=== PATIENT | female | born 1940 | race Caucasian/White ===

== ENCOUNTER 2017-03-14 22:37 | Observation (INO) ==
--- NOTE | 2017-03-15 02:10 | Internal Med History&Physical ---
<Yvette Flannery - Last Filed: 03/15/17 03:15> Date of Encounter: 03/15/17 Time of Encounter: 01:00 Assessment and Plan (1) New onset atrial fibrillation Current visit: Yes Status: Acute - New onset of A-flutter/A-fib RVR per EKG at [facility] ED. - Self-converted back sinus rhythm while on Cardizem drip prior to arrival to [place]. - Unknown etiology at this time. Differentials include hypertensive heart disease (doubt given no history of HTN), coronary heart disease (doubt given negative troponin, no chest pain nor ischemic change on EKG), hyperthyroidism ( less likely given recent TSH 1.567 on 02/03/17). - Repeat troponin. - Will obtain echocardiogram for further evaluation. - Currently rated controlled around 70s. - Will titrate down Cardizem to eventually switch to Lopressor 12.5 mg PO BID. - [id number] score = 2 (age and gender). Will start Lovenox 1 mg/kg SQ q12H for anticoagulation now. - Will consult cardiology and appreciate further evaluation and recommendations. - Patient needs to be admitted for close monitor with telemetry and further evaluation and management including cardiology consult. (2) DVT prophylaxis Current visit: Yes Status: Acute - Patient is currently on Lovenox 1 mg/kg SQ q12H. Internal Medicine - H&P: HPI Chief complaint: Palpitation Admitted From: Emergency Dept ([facility]) Plans for Post Hospital Care: Home History of present illness: Ms. Diaz is a 76 year old female without significant known PMH. Patient was transferred from [facility] ED for new onset A-fib/A-flutter. Patient reports having new acute onset of palpitation starting about 5 pm on 03/14. It's intermittent but no modifying factors noted. It's associated with lightheadedness, nausea and strange feeling down her right arm and bilateral lower extremities. Patient attended her line dancing at around 7 pm but the frequency and intensity of palpitation continued to increase to the point she cannot dance more. Patient denies chest pain/discomfort, diaphoresis, syncope, shortness of breath from palpitation. Patient denies fever, chills, vision change, hearing change, numbness/tinging, focal weakness. Patient is full code. Patient's only medication is baby aspirin two pills at night time and denies use of any thyroid supplement. In [facility] ED, patient has unremarkable lab (WBC 8.7, Hgb 15.6, Plt 281, Na 141, K 3.4, Cl 101, HCO3 23, BUN 29, SCr 0.88, glu 138, Ca 9.7, Mg 2.2, AST 18, ALT 21, Alk phos 1.2, Alb 4.5, PT 12.0, INR 0.95, PTT 25.2, Troponin < 0.056. EKG showed A-flutter/A-fib with rate as high as 220. Lopressor 5 mg IV x 1 was initially given but later started on Cardizem, which ran at 10 mg/hr upon arrival to [facility]. Past Med Surg Social Fam HX - Past Medical History Medical history: other (Osteopenia) Psychiatric history: no psych history - Past Surgical History Surgical History: cataract, hysterectomy - Social History Smoking Status: Never smoker Smokeless Tobacco Status: No Alcohol use: none Drug use: none - Family History Father Living Status: Age at : 74 Cause of : [place] Hx Family Cardiac Disorders: Yes ([place]) Mother Living Status: Age at : 93 Internal Medicine - H&P: Meds Aspirin 162 mg PO HS 02/24/17 [History] Calcium Carbonate/Vitamin D3 [Calcium 500 + Vit D Caplet] 1 tab PO DAILY [History] Lutein [Lutein] 6 mg PO DAILY 02/24/17 [History] Mv-Mn/FA/Vit K/Lycop/Lut/Coq10 [Daily Multivitamin Capsule] 1 tab PO DAILY 02/24 [History] [place]-3/Dha/Epa/Fish Oil [Fish Oil 1,000 mg Softgel] 1 tab PO DAILY 02/24/17 [ History] Allergies No Known Allergies Allergy (Verified 02/24/17 10:29) All Systems PM: A 10-system review of systems was performed and is negative for pertinent findings except as documented above in the HPI. - Constitutional Constitutional: no anorexia, no chills, no fever(s), no weight gain, no weight loss - EENT Eyes: no change in vision Ears: no decreased hearing Nose, mouth and throat: no dysphagia, no odynophagia - Cardiovascular Cardiovascular ROS IM: as per HPI, lightheadedness, palpitations, no chest pain , no diaphoresis, no edema, no syncope - Respiratory Respiratory: no cough, no dyspnea, no hemoptysis - Gastrointestinal Gastrointestinal: nausea, no abdominal pain, no diarrhea, no hematochezia, no melena, no vomiting - Genitourinary Genitourinary: no difficulty urinating, no dysuria, no hematuria - Musculoskeletal Musculoskeletal ROS IM: no arthralgias, no myalgias - Integumentary Integumentary IM: no pruritus, no rash - Neurological Neurological ROS: no focal weakness, no numbness, no tingling - Hematologic/Lymphatic Hematologic/Lymphatic: no easy bleeding, no easy bruising - Constitutional Vitals: Temp Pulse Resp BP Pulse Ox 97.6 F 62 18 117/65 97 03/15/17 00:12 03/15/17 00:49 03/15/17 00:12 03/15/17 00:49 03/15/17 00:12 General appearance: Present: cooperative, A&O X 3, no acute distress, answers questions appropriately - Head Head exam: Present: atraumatic, normocephalic - Eye Eye exam: Present: EOMI, PERRL, conjuntiva pink, sclera anicteric - Neck Neck exam general surgery: Present: supple, trachea midline. Absent: lymphadenopathy - Respiratory Respiratory exam: Present: CTAB. Absent: accessory muscle use, rales, rhonchi, wheezes - Cardiovascular Cardiovascular exam: Present: RRR, +S1, +S2. Absent: diastolic murmur, gallop, rubs, systolic murmur - GI/Abdominal GI/Abdominal exam: Present: normal bowel sounds, soft, no peritoneal signs. Absent: distended, tenderness - Extremities Exam Extremities exam: Present: warm, radial pulses palpable and symetrical. Absent : calf tenderness, cyanotic, pedal edema - Neurological Exam Neurological exam: Present: CN II-XII intact, oriented X3, no focal deficits. Absent: pronater drift, facial droop, speech deficit - Skin Skin exam: Present: dry, intact, warm Internal Med - H&P Results - Labs CBC & Chem 7: 03/15/17 02:10 03/15/17 02:10 Labs: Short CBC 03/15/17 Range/Units 02:10 WBC 6.9 (4.3-11.1) K/mcL Hgb 14.0 (11.5-15.4) g/dL Hct 40.9 (35.3-44.9) % Plt Count 255 (140-400) K/mcL Neutrophils # 5.0 (1.6-8.9) K/mcL Cardiac Enzymes 03/15/17 Range/Units 02:10 Troponin I 0.03 (0-0.03) ng/mL - EKG Data -: EKG Interpreted by Myself Rate: normal - EKG Data Prior EKG available for review: yes When compared to previous EKG: there are significant changes EKG comments: 03/15/17 02:15 HR 69, MA 161, QRS 75, ectopic atrial rhythm. No significant ischemic change. <Cayetano Jones - Last Filed: 03/15/17 05:13> Date of Encounter: 03/15/17 Internal Medicine - H&P: HPI History of present illness: Ms. Diaz is a 76 year old female All Systems PM: A 10-system review of systems was performed and is negative for pertinent findings except as documented above in the HPI. - Constitutional Vitals: Temp Pulse Resp BP Pulse Ox 97.6 F 63 18 122/61 97 03/15/17 00:12 03/15/17 02:56 03/15/17 00:12 03/15/17 02:56 03/15/17 00:12 Internal Med - H&P Results - Labs CBC & Chem 7: 03/15/17 02:10 03/15/17 02:10 Labs: Short CBC 03/15/17 Range/Units 02:10 WBC 6.9 (4.3-11.1) K/mcL Hgb 14.0 (11.5-15.4) g/dL Hct 40.9 (35.3-44.9) % Plt Count 255 (140-400) K/mcL Neutrophils # 5.0 (1.6-8.9) K/mcL BMP 03/15/17 02:10 Sodium 143 Potassium 3.7 Chloride 112 H Carbon Dioxide 21 BUN 24 H Creatinine 0.72 Glucose 125 H Calcium 9.4 Cardiac Enzymes 03/15/17 Range/Units 02:10 Troponin I 0.03 (0-0.03) ng/mL - Attending Attestation I performed history and physical examination of the patient and discussed management with the Resident. I reviewed the Residents note and agree with documented findings and plan of care. 76 Y/F with no significant past medical problems presents with palpitations. Pt was seen in the ER at [facility], and was noted to have atrial fibrillation with RVR, HR in the 150s. she was given metoprolol and later started on diltiazem infusion, with improving heart rate. O/E: Not in acute distress. Cardiac regular rate and rhythm. No murmurs. Lungs clear to auscultation. EKG from [facility] personally reviewed and shows Atrial flutter / fibrillation with RVR. EKG repeated here shows ?ectopic atrial rhythm versus junctional rhythm. Recent TSH was reportedly normal. A/P: A flutter / fib with RVR: Continue with diltiazem infusion and transition to oral metoprolol or diltiazem. CHADS2-VASc sore of 2 (Echocardiogram is requested to evaluate LV function). Will start enoxaparin and consider oral anticoagulation. Cardiology consultation.
[2017-03-15 02:38] LABS: Basophils % 0.3 %; Eosinophils % 0.4 %; Hematocrit 40.9 % (35.3-44.9); Immature Granulocytes % 0.1 % (0-4); Lymphocytes # 1.2 K/mcL (0.6-4.6); Lymphocytes % 17.5 %; Mean Corpuscular HGB Conc 34.2 g/dL (31.6-35.5); Mean Corpuscular Hemoglobin 29.4 pg (28.0-33.3); Mean Corpuscular Volume 85.9 fL (83.0-100.0); Mean Platelet Volume 10.8 fL (9.4-12.4); Monocytes # 0.6 K/mcL (0.0-1.3); Monocytes % 8.7 %; Platelet Count 255 K/mcL (140-400); Red Blood Count 4.76 M/mcL (3.82-4.97); Red Cell Distribution Width 12.2 % (11.5-14.5)
[2017-03-15 02:49] LABS: BUN/Creatinine Ratio 33 (6-26); Blood Urea Nitrogen 24 mg/dL (7-20); Calcium 9.4 mg/dL (8.6-10.8); Carbon Dioxide 21 mEq/L (19-29); Chloride 112 mEq/L (98-109); Glucose 125 mg/dL (70-99); Osmolality,Calculated 302 (280-300); Potassium 3.7 mEq/L (3.5-4.5); Sodium 143 mEq/L (136-145); eGFR For African Americans > 60 (> 60); eGFR For Non-African Americans > 60 (> 60)
[2017-03-15] MEDS: *HR* Enoxaparin 60 MG/0.6 ML SYRINGE SQ SCH ×2 (02:54→05:46)
--- NOTE | 2017-03-15 09:38 | Cardiology Consult Note ---
<Jorden Rg A - Last Filed: 03/15/17 12:20> Date of Encounter: 03/15/17 Time of Encounter: 09:33 Assessment and Plan (1) Atrial tachycardia determined by electrocardiography Current Visit: Yes Status: Acute Initial EKG demonstrates SVT Follow up EKG shows atrial tachycardia with variable conduction Telemetry overnight reviewed which shows runs of atrial tachycardia and pauses No anticoagulation will be needed Patient is current asymptomatic with a normal HR Agree with metoprolol 12.5mg BID. No current need for pacemaker Recommend when d/c home to have a Holter monitor placed for outpatient follow up Recommend to be on 81mg of asa daily at home If echo results do not show significant abnormalities, cardiology will be signing off. Please call with any questions. Discussion w patient/family: The assessment and plan as outlined above was discussed with the patient and/or family members who expressed understanding and agreement. All questions were answered. Thank you for involving us in the care of your patient. Please call with any questions. History of Present Illness Consult date: 03/15/17 Consult reason: New onset Afib RVR Chief complaint: palpitations and pre-syncope History of present illness: Ms. Diaz is a 76 year old female who presented to [facility] ER due to palpitations and pre-syncope. She reports at 5pm on 03/14 she was sitting on the couch and developed palpitations, nausea, and pre-syncope. She went to her line dancing at 7pm but was unable to continue due to her symptoms and went to the ER. Was found to be in Afib RVR and started on cardizem drip and transferred to [place]. She converted to NSR before arrival to [place]. She has been remarkably healthy and only takes a baby aspirin and vitamins. No cardiac history. She denies having any syncope, no previously feeling the palpitations, so chest pain, no dyspnea. No prior heart cath. Past Med Surg Social Fam HX - Past Medical History Medical history: other (Osteopenia) Psychiatric history: no psych history - Past Surgical History Surgical History: cataract, hysterectomy - Social History Smoking Status: Never smoker Smokeless Tobacco Status: No Alcohol use: none Drug use: none - Family History Father Living Status: Age at : 74 Cause of : [place] Hx Family Cardiac Disorders: Yes ([place]) Mother Living Status: Age at : 93 Medications and Allergies Aspirin 162 mg PO HS 02/24/17 [History] Calcium Carbonate/Vitamin D3 [Calcium 500 + Vit D Caplet] 1 tab PO DAILY [History] Lutein [Lutein] 6 mg PO DAILY 02/24/17 [History] Mv-Mn/FA/Vit K/Lycop/Lut/Coq10 [Daily Multivitamin Capsule] 1 tab PO DAILY 02/24 [History] [place]-3/Dha/Epa/Fish Oil [Fish Oil 1,000 mg Softgel] 1,000 mg PO DAILY 02/24/17 [History] Allergies No Known Allergies Allergy (Verified 02/24/17 10:29) All Systems Review: A 10-system review of systems was performed and is negative for pertinent findings except as documented above in the HPI. - Constitutional Constitutional: fatigue (now resolved) - EENT Eyes: no loss of vision - Cardiovascular Cardiovascular: irregular heart rhythm, lightheadedness, palpitations, rapid heart rate, no dyspnea at rest, no syncope - Respiratory Respiratory: no cough, no dyspnea - Gastrointestinal Gastrointestinal: no abdominal pain - Integumentary Integumentary: no rash Physical Examination Vital Signs, Last 4 Hours Temp Pulse Resp BP Pulse Ox 03/15/17 07:27 98.3 F 67 15 114/59 99 General: Conversant HEENT: Atraumatic Neck: No JVD Cardiac: Reg Rate and Rhythm, Normal S1 and S2 Lungs: Normal Breath Sounds Neuro: Alert and responsive Abdomen: Soft Skin: No rashes noted on visualized skin Extremities: No Cyanosis, No Edema, Normal Pulses Results 03/15/17 02:10 03/15/17 02:10 Lab Results 03/15/17 03/15/17 03/15/17 02:10 02:10 02:10 WBC 6.9 Hgb 14.0 Hct 40.9 Plt Count 255 Sodium 143 Potassium 3.7 Chloride 112 H Carbon Dioxide 21 BUN 24 H Creatinine 0.72 Glucose 125 H Calcium 9.4 Troponin I 0.03 Consult Discharge Plan - Plan Referrals: Munira Sheppard DO [Primary Care Provider] - 03/24/17 1:30 pm <Magdalene Benjamin - Last Filed: 03/15/17 16:45> Date of Encounter: 03/15/17 Assessment and Plan Discussion w patient/family: The assessment and plan as outlined above was discussed with the patient and/or family members who expressed understanding and agreement. All questions were answered. Thank you for involving us in the care of your patient. Please call with any questions. History of Present Illness History of present illness: Ms. Diaz is a 76 year old female All Systems Review: A 10-system review of systems was performed and is negative for pertinent findings except as documented above in the HPI. Physical Examination Vital Signs, Last 4 Hours Temp Pulse Resp BP Pulse Ox 03/15/17 15:49 98.4 F 70 15 108/65 96 Results 03/15/17 02:10 03/15/17 02:10 Lab Results 03/15/17 03/15/17 03/15/17 02:10 02:10 02:10 WBC 6.9 Hgb 14.0 Hct 40.9 Plt Count 255 Sodium 143 Potassium 3.7 Chloride 112 H Carbon Dioxide 21 BUN 24 H Creatinine 0.72 Glucose 125 H Calcium 9.4 Troponin I 0.03 - Attending Attestation I examined this patient and my medical decision-making was reviewed with the TILE PRESSER/PA/Advanced Practice Nurse/Resident Physician. I agree with the documented findings, disposition and treatment plan. Ms. Diaz presented to [facility] ER with palpitations while country line dancing. She is generally very active and denies recent chest pain, SOB, pre syncope or syncope. She was transferred to [place]. I reviewed all her ECGs from [facility] and [place] in detail. There is no evidence for atrial fibrillation. She does however, have an ectopic atrial rhythm on her ECG here and atrial tachycardia with variable conduction on an ECG at [facility]. Certainly, she is at risk for the development of AF. I have recommended to the patient she start low dose aspirin for prevention purposes. I agree with metoprolol at present dose. Otherwise, her ECG findings demonstrate the development of conduction system disease which we discussed. Her echo was not available for our discussion at the time of my visit with the patient. However, I did review the results after seeing her. It demonstrates unremarkable findings. I would recommend sending the patient home on a 24 or 48 hour holter monitor for evaluation of dysrhythmia in her own home environment and while on metoprolol. I do not think she warrants ischemic evaluation at this time since she is very active and without ischemic symptoms. She should follow up with us as an outpatient. We will sign off. Please call with questions.
--- NOTE | 2017-03-15 12:12 | ECHO - Doppler Report ---
Echocardiogram Name: Armida Diaz Date of Study: 03/15/2017 Date: 1940 Ht: 61.0 in Medical Record#: [id number] Age: 76 Wt: 119.0 lb Gender: Female BSA: 1.52 Order #: [id number] Location: [facility] Room #: 2NE21 Reading Physician: Arya Chamberlain DO, OCTAVIA COHEN Acidizer: uHgo Palencia RDCS Ordering Physician: Yvette Flannery DO Primary Physician: Munira Sheppard DO Indications: Atrial fibrillation Impressions: LVEF 60-65%. Normal LV chamber size, wall thickness and function. Mild left ventricular diastolic dysfunction. Normal right ventricular structure and function. No evidence of pulmonary hypertension. No significant valvular dysfunction. Left Ventricular Wall Motion: Rest Echo Findings All wall segments showed normal motion. Findings: Study Quality * Technically adequate exam. ECG Findings * Normal sinus rhythm. Left Ventricle * LVEF 60-65%. * Normal LV chamber size, wall thickness and function. * Mild left ventricular diastolic dysfunction. Right Ventricle * Normal right ventricular structure and function. Left Atrium * Normal left atrial size. Right Atrium * Normal right atrial size. Interatrial Septum * No evidence of PFO by color Doppler. Aortic Valve * Trileaflet aortic valve. * Mildly calcified aortic valve leaflets. * No aortic regurgitation. * No aortic stenosis. Mitral Valve * Mild mitral annular calcification * Normal mitral valve function. * No mitral regurgitation. * No mitral stenosis. Tricuspid Valve * Normal tricuspid valve structure and function. * Trace tricuspid regurgitation. * No evidence of pulmonary hypertension. Pulmonic Valve * Normal pulmonic valve structure and function. * No pulmonic regurgitation. Aorta * Normally sized aortic root. Pericardium * The pericardium appears normal. IVC * Normal IVC dimensions and inspiratory collapse. Pulmonary Artery * Normal visualized portions of the main pulmonary artery. History Family History of CAD Measurements: BP: 114/ 59 2D Normal Values RVIDd: 2.18 cm <2.7 cm IVSd: .86 cm 0.6 - 1.0 cm LVIDd: 3.38 cm 3.7 - 5.6 cm LVPWd: .76 cm 0.6 - 1.1 cm LVIDs: 2.71 cm 1.5 - 3.6 cm AO: 2.20 cm < 4.0 cm LA: 2.50 cm 2.0 - 4.0cm %FS: 19.80 cm >25 % LA volume: 25 Mitral Valve Peak E:.90 m/sec Peak A:.83 m/sec E/A Ratio:1.1 Peak E' Lat Jaison:10.7 cm/s Peak E' Med Jaison:8.05 cm/s E/E' Lat Ratio:8.4 E/E' Med Ratio:11.1 Tricuspid Valve TV Regurg Peak Grad: 24.00mmHg TV Regurg Peak Jaison: 2.46m/sec Updated by Arya Chamberlain DO, FACKye, OCTAVIA, ERWIN on 03/15/2017 12:08:28 PM electronically signed on 03/15/2017 12:08:55 PM with status of Final Wall Motion Adams: 1=Normal, 2=Hypokinesis, 3=Akinesis, 4=Dyskinesis, 5=Aneurysmal, 6=Hyperkinetic, X=Not Visualized (Blank)=Missing
--- NOTE | 2017-03-15 14:51 | Electrocardiograph Report ---
[place] [address] Test Date: 2017-03-15 Pat Name: Armida Diaz Department: 111 Room: 2NE21 Gender: F Research Chemical Engineer: REDD : 1940 Requested By: Yvette Flannery Order Number: [id number] Reading MD: Michael Mercado MD Measurements Intervals [place] Rate: 69 P: -88 RI: 161 QRS: 50 QRSD: 75 T: 50 QT: 412 QTc: 430 Interpretive Statements ECTOPIC ATRIAL RHYTHM Electronically Signed On 03-15-2017 14:49:57 EDT by Michael Mercado MD
--- NOTE | 2017-03-15 16:38 | Internal Med Progress Note ---
<Andres Sorto - Last Filed: 03/15/17 16:49> Date of Encounter: 03/15/17 - Constitutional Vitals: Temp Pulse Resp BP Pulse Ox 98.4 F 70 15 108/65 96 03/15/17 15:49 03/15/17 15:49 03/15/17 15:49 03/15/17 15:49 03/15/17 15:49 Internal Medicine: Result - Labs CBC & Chem 7: 03/15/17 02:10 03/15/17 02:10 Labs: Short CBC 03/15/17 Range/Units 02:10 WBC 6.9 (4.3-11.1) K/mcL Hgb 14.0 (11.5-15.4) g/dL Hct 40.9 (35.3-44.9) % Plt Count 255 (140-400) K/mcL Neutrophils # 5.0 (1.6-8.9) K/mcL BMP 03/15/17 02:10 Sodium 143 Potassium 3.7 Chloride 112 H Carbon Dioxide 21 BUN 24 H Creatinine 0.72 Glucose 125 H Calcium 9.4 Cardiac Enzymes 03/15/17 Range/Units 02:10 Troponin I 0.03 (0-0.03) ng/mL Consult Discharge Plan - Plan Referrals: Munira Sheppard, [Primary Care Provider] - 03/24/17 1:30 pm - Attending Attestation I examined this patient and my medical decision-making was reviewed with the COCOA BEAN CLEANER/PA/Advanced Practice Nurse/Resident Physician. I agree with the documented findings, disposition and treatment plan as described except to the extent set forth below. Upon admission she has a supraventricular tachycardia. Cardiology on the board. We will follow cardiology recommendations. This is not a progress note. This is not a billable note. <Kathleen Holley - Last Filed: 03/15/17 17:45> Date of Encounter: 03/15/17 Time of Encounter: 09:30 - Assessment and plan (1) Atrial tachycardia determined by electrocardiography Current Visit: Yes Status: Acute Assessment and plan: patient was transferred from [facility], had chief complain of palpitations. cardiology has evaluated the patient. initial EKG showed SVT, repeat EKG showed atrial tachycardia with variable conduction. per cardio, tele shows runs of atrial tachycardia with pauses. no anticoagulation needed. patient asymptomatic and currently chest pain free. echo showed LVEF 60-65%, normal LV chamer, size, wall thickness, and function. normal RV structure and function, no evidence of pulmonary HTn, no significant valvular dysfunction. Plan: continue metoprolol 12.5 BID will monitor tele overnight. cardiology has recommended to D/c home with holter monitor and outpatient follow up. (2) DVT prophylaxis Current Visit: Yes Status: Acute Assessment and plan: lovenox. - Subjective Interval history: 76 year old female evaluated at bedside. patient was admitted last night for Afib RVR. she was a transfer from [facility] ED. she was started on cardizem drip and converted to sinus rhythm. she is now on metoprolol BID. patient denies nausea, vomiting, diarrhea, fever, chills. she states she is very active and started noticing palpitations last night that spontaneously went away. she then noticed it again when she went to her exercise class. at that time, she was diaphoretic and then was brought to the hospital. patient says she drinks only decaffeinated coffee. she denies drinking soda, or having excess caffeine. she has had some more emotional stress recently when she found out a "secret" about her ancestry. other than that, she has not noticed any sort of new stress in her life. she denies history of drug use. she is currently chest pain free. she denies dizziness, palpitations currently. - Constitutional Vitals: Temp Pulse Resp BP Pulse Ox 98.4 F 70 15 108/65 96 03/15/17 15:49 03/15/17 15:49 03/15/17 15:49 03/15/17 15:49 03/15/17 15:49 General appearance: Present: cooperative, A&O X 3, no acute distress, answers questions appropriately - Head Head exam: Present: atraumatic, normocephalic - Neck Neck exam general surgery: Present: supple, trachea midline - Respiratory Respiratory exam: Present: CTAB - Cardiovascular Cardiovascular exam: Present: RRR, +S1, +S2 - GI/Abdominal GI/Abdominal exam: Present: normal bowel sounds, soft. Absent: distended, tenderness - Extremities Exam Extremities exam: Absent: cyanotic, pedal edema - Neurological Exam Neurological exam: Present: alert, oriented X3, no focal deficits - Psychiatric Psychiatric exam: Present: normal affect, normal mood - Skin Skin exam: Present: dry Internal Medicine: Result - Labs CBC & Chem 7: 03/15/17 02:10 03/15/17 02:10 Labs: Short CBC 03/15/17 Range/Units 02:10 WBC 6.9 (4.3-11.1) K/mcL Hgb 14.0 (11.5-15.4) g/dL Hct 40.9 (35.3-44.9) % Plt Count 255 (140-400) K/mcL Neutrophils # 5.0 (1.6-8.9) K/mcL BMP 03/15/17 02:10 Sodium 143 Potassium 3.7 Chloride 112 H Carbon Dioxide 21 BUN 24 H Creatinine 0.72 Glucose 125 H Calcium 9.4 Cardiac Enzymes 03/15/17 Range/Units 02:10 Troponin I 0.03 (0-0.03) ng/mL
[2017-03-16] MEDS ORDERED: *HR* Enoxaparin 40 MG/0.4 ML SYRINGE SQ SCH (06:00)
[2017-03-16 07:46] LABS: BUN/Creatinine Ratio 23 (6-26); Blood Urea Nitrogen 16 mg/dL (7-20); Calcium 9.1 mg/dL (8.6-10.8); Carbon Dioxide 22 mEq/L (19-29); Chloride 109 mEq/L (98-109); Glucose 111 mg/dL (70-99); Osmolality,Calculated 294 (280-300); Potassium 3.9 mEq/L (3.5-4.5); Sodium 141 mEq/L (136-145); eGFR For African Americans > 60 (> 60); eGFR For Non-African Americans > 60 (> 60)
[2017-03-16 07:59] VITALS: BP 126/86
[2017-03-16] MEDS ORDERED: Aspirin 81 MG TAB.CHEW PO SCH (09:30)
--- NOTE | 2017-03-16 09:35 | Discharge Summary ---
<Kathleen Holley - Last Filed: 03/16/17 09:32> Date of Encounter: 03/16/17 Time of Encounter: 06:30 - Discharge Diagnosis (1) Atrial tachycardia determined by electrocardiography Priority: Primary Status: Acute (2) DVT prophylaxis Priority: Secondary Status: Acute - Discharge Medications Prescriptions: Metoprolol [Lopressor] 12.5 mg PO BID #60 tablet Home Medications: Aspirin 162 mg PO HS 02/24/17 [History] Calcium Carbonate/Vitamin D3 [Calcium 500 + Vit D Caplet] 1 tab PO DAILY [History] Lutein 6 mg PO DAILY 02/24/17 [History] Mv-Mn/FA/Vit K/Lycop/Lut/Coq10 [Daily Multivitamin Capsule] 1 tab PO DAILY 02/24 [History] [place]-3/Dha/Epa/Fish Oil [Fish Oil 1,000 mg Softgel] 1,000 mg PO DAILY 02/24/17 [History] Metoprolol [Lopressor] 12.5 mg PO BID #60 tablet 03/16/17 [Rx] Allergies/Adverse Reactions: Allergies No Known Allergies Allergy (Verified 02/24/17 10:29) Procedures/tests Complete & Pending: Procedures Performed prior 72 hours Category Date Time Status ECG 48 holter monitor setup [ECG] Routine Y 03/16/17 09:16 Ordered EKG [ECG 12 lead ECG] [ECG] Stat Y 03/15/17 02:11 Completed EV echocardiogram Routine Y 03/15/17 02:05 Completed SP exercise nuclear stress Routine Y 03/16/17 08:15 Ordered Date of admission: 03/14/17 23:46 Primary care physician: Jb Marquez Consults: 03/15/17 02:14 Consult to Cardiology [CONS] Routine Comment: Consulting Provider: Cardiology Sarah Reason for Consult: New onset of A-fib/flutter. Now back to sinus rhythm after Cardizem drip started at [facility]. Will switch to Lopressor 12.5 mg BID. [id number]- VASC score 2 (age & gender) and will start Lovenox 1 mg/kg SQ for anticoagulation now. Appreciate cardiology evaluation and recommendations. Call Completed: No Discharging clinician: Kathleen Holley Anticipated date of discharge: 03/16/17 - Patient Status Disposition: Home, Self-Care Condition: Good Functional capacity at discharge: independent ambulation Overall status at discharge: patient is progressing back to baseline - Discharge Instructions Instructions: Atrial Fibrillation (GEN) Follow Up With: Munira Sheppard DO [Primary Care Provider] - 03/24/17 1:30 pm Magdalene Benjamin DO [Partnered Physician] - Additional Instructions: Take metoprolol 12.5 mg BID as directed. Follow up with PCP within one week of discharge patient will be discharged with 48 hour holter monitor per cardiology, then follow up with cardiology outpatient. increase activities as tolerated. return to emergency department immediately if symptoms return - Diet and Activity Activity: increase activity as tolerated Diet: advance to your usual diet Hospital course: Ms. Diaz is a 76 year old female with no significant past medical History. She was admitted to [facility] on 03/15/[address] from [facility] ER with chief complaint of palpitations. Patient is very active. She states that she initially noticed the palpitations in the evening and then suddenly stopped. She again noticed the palpitations later in the evening when she went to her line dancing class. At that time, patient she did not have any chest pain but was pale and felt dizzy. She also had some nausea but no vomiting. she denies pre syncope or syncopal episodes. Her initial EKG demonstrated SVT, and follow up EKG was significant for atrial tachycardia. patient was started on IV cardizem at [facility] ER and self converted to sinus rhythm. She was then placed on metoprolol 12.5mg BID and monitored on tele. cardiology was consulted for recommendations. patient had Echo done which showed LVEF 60-65%, normal LV chamber size wall thickness and function, mild LV diastolic dysfunction, normal RV structure and function, no evidence of pulmonary HTN, no significant valvular dysfunction. patient was recommended for inpatient stress test but refused. Per cardiology recommendations, she will be discharged with 48 hour holter monitor and follow up with cardiology outpatient. At that time, she will be re-evaluated for stress test. patient remained stable and was monitored on telemetry. She had no acute events during her hospital stay, and continued to remain stable until her discharge. She was chest pain free throughout her hospital stay. Plan: Take metoprolol 12.5 mg BID as directed. Follow up with PCP within one week of discharge patient will be discharged with 48 hour holter monitor per cardiology, then follow up with cardiology outpatient. increase activities as tolerated. return to emergency department immediately if symptoms return IF stress test negative, she may benefit from outpatient sleep study. - Time Spent with Patient Total time spent providing and/or coordinating discharge services: - Constitutional Vitals: Temp Pulse Resp BP Pulse Ox 97.5 F L 102 18 126/86 97 03/16/17 07:56 03/16/17 07:56 03/16/17 07:56 03/16/17 07:56 03/16/17 07:56 General appearance: Present: cooperative, A&O X 3, no acute distress, answers questions appropriately - Head Head exam: Present: atraumatic, normocephalic - Neck Neck exam general surgery: Present: supple, trachea midline - Respiratory Respiratory exam: Present: CTAB - Cardiovascular Cardiovascular exam: Present: RRR - GI/Abdominal GI/Abdominal exam: Present: normal bowel sounds, soft. Absent: distended, tenderness - Extremities Exam Extremities exam: Absent: cyanotic, pedal edema - Psychiatric Psychiatric exam: Present: normal affect, normal mood <Noreen,Andres P - Last Filed: 03/16/17 18:55> Date of Encounter: 03/16/17 Procedures/tests Complete & Pending: Procedures Performed prior 72 hours Category Date Time Status ECG 48 holter monitor setup [ECG] Routine Y 03/16/17 09:16 Completed EKG [ECG 12 lead ECG] [ECG] Stat Y 03/15/17 02:11 Completed EV echocardiogram Routine Y 03/15/17 02:05 Completed Date of admission: 03/14/17 23:46 Primary care physician: Jb Marquez Consults: 03/15/17 02:14 Consult to Cardiology [CONS] Routine Comment: Consulting Provider: Cardiology Sarah Reason for Consult: New onset of A-fib/flutter. Now back to sinus rhythm after Cardizem drip started at [facility]. Will switch to Lopressor 12.5 mg BID. [id number]- VASC score 2 (age & gender) and will start Lovenox 1 mg/kg SQ for anticoagulation now. Appreciate cardiology evaluation and recommendations. Call Completed: No Hospital course: Ms. Diaz is a 76 year old female - Time Spent with Patient Total time spent providing and/or coordinating discharge services: - Constitutional Vitals: Temp Pulse Resp BP Pulse Ox 97.5 F L 102 18 126/86 97 03/16/17 07:56 03/16/17 07:56 03/16/17 07:56 03/16/17 07:56 03/16/17 07:56 - Attending Attestation I examined this patient and my medical decision-making was reviewed with the MACHINE MAINTENANCE MECHANIC/PA/Advanced Practice Nurse/Resident Physician. I agree with the documented findings, disposition and treatment plan as described except to the extent set forth below.
== END 2017-03-16 13:55 | disposition home or self-care (01) ==
LOC: 2NENU
PROVIDERS: ADMIT Internal Medicine; ATTEND Internal Medicine